=== PATIENT | male | born 1955 | race Caucasian/White ===

== ENCOUNTER 2024-06-04 12:05 | Outpatient (CLI) | payer MEDICARE | END 2024-06-04 12:06 | disposition home or self-care (01) | LOC: CSHCP 12:05 | PROVIDERS: ATTEND Internal Medicine | DX: R91.1 Solitary pulmonary nodule (principal); J44.9 Chronic obstructive pulmonary disease, unspecified | CPT/HCPCS: 94060; 94664; 94726; 94729; 94760 ==